=== PATIENT | female | born 1960 | race Two or more races ===

== ENCOUNTER 2017-06-18 12:08 | Emergency (ER) | payer OTHER ==
[~2017-06-18] VITALS: Ht 165.1 cm; Wt 768.8 kg
[~2017-06-18 12:08] MED LIST: CIPRO750 MG PO; NABUMETONE750 MG PO; TRIPLE ANTIBIOT15 GM TP; [UNRECOGNIZED DRUG - OTHER]
[2017-06-18] MEDS ORDERED: DICLOFENAC SODI50 MG PO (15:43)
[2017-06-18] MEDS ORDERED: NORFLEX100MG PO (15:43)
== END 2017-06-18 15:50 | disposition home or self-care (01) ==
LOC: ER 12:08
DX: M54.2 Cervicalgia (principal); M54.5 Low back pain

== ENCOUNTER 2019-01-16 09:44 | Emergency (ER) | payer OTHER ==
[~2019-01-16] VITALS: Ht 170.2 cm; Wt 81.6 kg
[~2019-01-16 09:44] MED LIST changes: +DICLOFENAC SODI50 MG PO; +NORFLEX100MG PO
[2019-01-16] MEDS ORDERED: PROMETH-CODEIN 65 ML PO (10:50)
[2019-01-16] MEDS ORDERED: ZITHROMAX500 MG PO (10:50)
[2019-01-16] MEDS ORDERED: TESSALON PERLE100 MG PO (10:50)
== END 2019-01-16 11:28 | disposition home or self-care (01) ==
LOC: ER 09:44
DX: R05 Cough (principal)

== ENCOUNTER 2021-02-10 08:00 | Outpatient (CLI) | payer OTHER ==
[~2021-02-10 08:00] MED LIST changes: +PROMETH-CODEIN 65 ML PO; +TESSALON PERLE100 MG PO; +ZITHROMAX500 MG PO
== END 2021-02-10 08:05 | disposition home or self-care (01) ==
LOC: PPH VACUNA 08:00
PROVIDERS: ATTEND Emergency Medicine Pediatric Emergency Medicine
DX: Z23 Encounter for immunization (principal)

== ENCOUNTER 2022-02-09 14:20 | Emergency (ER) | payer OTHER ==
[~2022-02-09] VITALS: Ht 165.1 cm; Wt 78.9 kg
[2022-02-09] MEDS ORDERED: ANASTROZOLE1 MG PO (14:45)
[2022-02-09] MEDS ORDERED: NOXIFOL-D32500 UNIT PO (14:46)
== END 2022-02-09 16:25 | disposition left against medical advice (07) ==
LOC: ER 14:20
DX: Z53.21 Procedure and treatment not carried out due to patient leaving prior to being seen by health care provider (principal)